=== PATIENT | male | born 2000 | race Caucasian/White ===

== ENCOUNTER 2018-01-02 22:26 | Emergency (ER) | payer OTHER ==
[2018-01-03] MEDS ORDERED: Ondansetron 4 MG Tab.DIS PO ONE (01:29)
--- NOTE | 2018-01-03 01:35 | EDM.PDOC ---
ED HPI GENERAL MEDICAL PROBLEM - General Chief Complaint: Head Injury Stated Complaint: HEADACHE/TROUBLE READING/HAS HAD CONCUSSIONS Time Seen by Provider: 01/03/18 01:06 Source of Information: Reports: Patient, Family (Father) History Limitations: Reports: No Limitations - History of Present Illness INITIAL COMMENTS - FREE TEXT/NARRATIVE: The patient states that he was lifting weights on an incline about one week ago , when he dropped the barbell onto his head. He states that he was lifting approximately 65 pounds, repeatedly, and simply got too tired. The barbell did not fall from his hands, rather, his arms became fatigued and he was unable to control the descent of the weights. He states that the barbell struck the top of his forehead. He states that he lost consciousness, briefly, according to a friend of his who witnessed the event, and after the event, he felt dizzy and vomited. There was no visible injury to his head, and he did not seek medical attention. He recalls the entire event, and is able to describe it to me without difficulty. The patient is now brought to the ED by his father because the patient has continued to have a headache and vomiting. The patient's father states that the patient has had 2 or 3 football concussions in the past, but with those concussions, the patient was confused and perseverated questions. That has not occurred with this head injury. The patient does not have a PCP. Headache Pain Score (Numeric/FACES): 3 - Related Data Allergies Allergy/AdvReac Type Severity Reaction Status Date / Time No Known Allergies Allergy Verified 01/02/18 22:44 Home Meds: Home Meds Ondansetron [Zofran ODT] 1 tab PO Q8H PRN #10 tab.dis 01/03/18 [Rx] Past Medical History Neurological History: Reports: Concussion (x 2 or 3) Psychiatric History: Reports: ADD - Past Surgical History Musculoskeletal Surgical History: Reports: Other (See Below) (Right ankle torn ligament repair) Social & Family History - Family History Family Medical History: Noncontributory - Tobacco Use Smoking Status *Q: Never Smoker - Caffeine Use Caffeine Use: Reports: Coffee - Alcohol Use Alcohol Use History: No - Recreational Drug Use Recreational Drug Use: No - Living Situation & Occupation Living situation: Reports: Single, with Family 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 ED EXAM, HEAD INJURY - Physical Exam Exam: See Below Exam Limited By: No Limitations General Appearance: Alert, WD/WN, No Apparent Distress Head: Atraumatic (no visible or palpable injury to the top of the forehead), Normocephalic Eyes: Bilateral Eye: EOMI, Normal Inspection, PERRL Ears: Normal External Exam, Normal Canal, Hearing Grossly Normal, Normal TMs Nose: Normal Inspection, Normal Mucousa, No Blood Throat/Mouth: Normal Inspection, Normal Lips, Normal Teeth, Normal Gums, Normal Oropharynx, Normal Voice, No Airway Compromise Neck: Non-Tender, Full Range of Motion, Normal Alignment, Normal Inspection Respiratory: No Respiratory Distress, Lungs Clear, Normal Breath Sounds, No Accessory Muscle Use Cardiovascular: Normal Peripheral Pulses, Regular Rate, Rhythm, No Edema, No Gallop, No JVD, No Murmur, No Rub GI/Abdominal Exam: Normal Bowel Sounds, Soft, Non-Tender, No Organomegaly, No Distention, No Abnormal Bruit, No Mass (Male) Exam: Deferred Rectal (Males) Exam: Deferred Back Exam: Full Range of Motion, Normal Inspection, NT Extremities: Normal Inspection, Normal Range of Motion, No Pedal Edema, Normal Capillary Refill Neurologic: warehouse distribution manager II-XII nml As Tested, No Motor/Sensory Deficits, Alert, Oriented x 3 Skin: Normal Color, Warm/Dry Course - Vital Signs Last Recorded V/S: Last Vital Signs Temp 36.8 C 01/02/18 22:37 Pulse 63 01/03/18 01:45 Resp 16 01/03/18 01:45 BP 122/70 01/03/18 01:45 Pulse Ox 99 01/03/18 01:45 - Orders/Labs/Meds Meds: Medications Discontinued Medications Generic Name Dose Route Start Last Admin Trade Name Freq PRN Reason Stop Dose Admin Ondansetron HCl 4 mg 01/03/18 01:29 01/03/18 01:47 Zofran Odt PO 01/03/18 01:30 4 mg ONETIME ONE Administration - Re-Assessments/Exams Free Text/Narrative Re-Assessment/Exam: 01/03/18 01:29 While the patient has been complaining of a headache, nausea, and vomiting all week, he has not had any confusion or perseveration of questions. While patients with a concussion can certainly have headaches, nausea, and vomiting, those are not diagnostic criterion. Confusion is the hallmark of a concussion. Additionally, the mechanism of injury is not consistent with a brain injury. Based on his history, I suspect that his brief loss of consciousness was not so much due to a head injury, as it was due to a vagal reaction. The injury to his head was so minimal that it did not even leave a scratch or bump on his head. The patient's neurologic exam is completely normal, therefore he does meet criterion for an emergent CT scan. I don't believe that he even meets criterion for an outpatient MRI, however, this decision could be made by others. I offered to refer the patient to a primary care here, but the patient's father declined, stating that the patient's insurance is out of [place]. For tonight's purposes, I have ordered a dose of Zofran, and will prescribe additional. I suspect the patient's headache is a tension headache, and the patient agrees. He does not believe that he has a migraine headache. Nevertheless, I offered to treat the patient for a migraine headache, to see if it would relieve his headache, however, he states that his headache is quite minimal at this time, and therefore he declined. Departure - Departure Time of Disposition: 01:33 Disposition: Home, Self-Care 01 Condition: Good Clinical Impression: Headache, Nausea & vomiting - Discharge Information Prescriptions: Ondansetron [Zofran ODT] 1 tab PO Q8H PRN #10 tab.dis PRN Reason: Nausea/Vomiting Referrals: PCP,Not In Area [Primary Care Provider] - Forms: ED Department Discharge Additional Instructions: You were seen in the emergency room for headache, nausea, and vomiting all week , ever since striking your head with a barbell, with brief loss of consciousness. Based on your history and physical examination, you do not have a concussion. Your loss of consciousness was likely a vagal reaction, not due to a traumatic brain injury. Your neurologic exam in the ER was completely normal, therefore an emergency CT scan of your brain was not indicated. The cause of your headache is likely a tension headache. An offer was made to treat you for a migraine headache, to see if that would relieve your headache, which was declined. You have been started on the anti-nausea medicine Zofran. A prescription for Zofran has been sent to the [facility] located in the [place] store. Dissolve 1 tablet on your tongue up to every 8 hours, as needed for nausea/ vomiting. If any other problems, please do not hesitate to return to the ER.
== END 2018-01-03 01:45 | disposition home or self-care (01) ==
LOC: JD.ED 22:26
DX: R11.2 Nausea with vomiting, unspecified (principal); R51 Headache; F98.8 Other specified behavioral and emotional disorders with onset usually occurring in childhood and adolescence
CPT/HCPCS: 99284; A9270; 99283